=== PATIENT | female | born 1990 | race Caucasian/White ===

== ENCOUNTER 2021-07-15 01:41 | Inpatient (IN) | payer MEDICAID ==
[~2021-07-15] VITALS: Ht 160 cm; Wt 104.3 kg
[2021-07-15] MEDS ORDERED: FAMOTIDINE 20MG/2ML VIAL IV STA (03:26)
[2021-07-15] MEDS ORDERED: MORPHINE SULFATE 4 MG/ML CPJ (NOT FOR IM USE) IV STA (03:26)
[2021-07-15] MEDS ORDERED: ONDANSETRON HCL 4MG/2ML INJ IV STA (03:26)
[2021-07-15] MEDS ORDERED: SODIUM CHLORIDE 0.9% 1,000 ML IV ONE (03:30)
[2021-07-15] MEDS ORDERED: MORPHINE SULFATE 2 MG/ML CPJ (NOT FOR IM USE) IV SCH ×2 (03:45→06:15)
[2021-07-15 04:07] LABS: HEMATOCRIT. 40.9 % (36.0-48.0); HEMOGLOBIN. 13.7 g/dL (12.0-16.0); MEAN CORPUSCULAR HEMOGLOBIN 29.9 pg (28.0-32.0); MEAN CORPUSCULAR VOLUME 89.2 fL (81.0-99.0); MEAN PLATELET VOLUME 9.1 fl (7.4-10.4); PLATELET 334 x1000/uL (130-400); RED BLOOD CELL COUNT 4.58 mill/uL (4.2-5.4); RED CELL DISTRIBUTION WIDTH 12.8 % (11.6-14.6)
[2021-07-15 04:14] LABS: CLARITY URINE CLOUDY (CLEAR); COLOR URINE YELLOW (YELLOW); KETONES URINE TRACE (NEGATIVE); LEUKOCYTE ESTERASE URINE TRACE (NEGATIVE); NITRITE URINE NEGATIVE (NEGATIVE); OCCULT BLOOD URINE NEGATIVE (NEGATIVE); PH URINE 5.5 (4.5-8.0); PROTEIN URINE 2+ (NEGATIVE); SPECIFIC GRAVITY URINE 1.031 (1.005-1.030)
[2021-07-15 04:15] LABS: CHLORIDE 105 mEq/L (98-107)
[2021-07-15 04:25] LABS: HCG SCREEN NEGATIVE
[2021-07-15] MEDS ORDERED: LEVOFLOXACIN 750MG PREMIX 150 ML IV ONE (05:45)
[2021-07-15] MEDS ORDERED: MORPHINE SULFATE 4 MG/ML CPJ (NOT FOR IM USE) IV ONE (05:45)
[2021-07-15 05:50] LABS: PLATELET ESTIMATE NORMAL
[2021-07-15] MEDS ORDERED: ONDANSETRON HCL 4MG/2ML INJ IV ONE (06:15)
[2021-07-15 11:38] VITALS: BP 104/63
[2021-07-15 12:00] VITALS: BP 102/62
[2021-07-15] MEDS ORDERED: CLONIDINE 0.1MG TABLET PO PRN (12:30)
[2021-07-15] MEDS ORDERED: DEXT 5%/0.45% NACL 1000ML 1,000 ML IV SCH (12:30)
[2021-07-15] MEDS ORDERED: DOCUSATE SODIUM 100MG CAPSULE PO PRN (12:30)
[2021-07-15] MEDS ORDERED: IPRATROPIUM/ALBUTEROL 0.5-3(2.5)MG/3ML NEB HHN PRN (12:30)
[2021-07-15] MEDS ORDERED: MAGNESIUM/ALUMINUM HYDROXIDE/SIMETHICONE 30ML UDC PO PRN (12:30)
[2021-07-15] MEDS ORDERED: ONDANSETRON HCL 4MG/2ML INJ IV PRN (12:30)
[2021-07-15 17:00] VITALS: BP 100/57
[2021-07-15] MEDS: DEXT 5%/0.45% NACL KCL 20MEQ/L 1,000 ML IV SCH (18:21)
[2021-07-15 20:00] VITALS: BP 134/65
[2021-07-15] MEDS ORDERED: PNEUMOCOCCAL 23-VAL P-SAC VAC 0.5 ML IM ONE (21:30)
[2021-07-16] VITALS: BP 139/78
[2021-07-16 04:00] VITALS: BP 115/63
[2021-07-16] MEDS ORDERED: LEVOFLOXACIN 500MG PREMIX 100 ML IV SCH (06:00)
[2021-07-16] MEDS: DEXT 5%/0.45% NACL KCL 20MEQ/L 1,000 ML IV SCH (07:01)
[2021-07-16 07:28] LABS: BASOPHILS % 0.3 % (0.0-2.0); EOSINOPHILS % 1.4 % (0.0-5.0); HEMATOCRIT. 38.3 % (36.0-48.0); HEMOGLOBIN. 12.9 g/dL (12.0-16.0); LYMPHOCYTES % 20.5 % (20.0-50.0); MEAN CORPUSCULAR HEMOGLOBIN 30.3 pg (28.0-32.0); MEAN CORPUSCULAR VOLUME 90.1 fL (81.0-99.0); MEAN PLATELET VOLUME 9.4 fl (7.4-10.4); MONOCYTES % 5.3 % (2.0-8.0); NEUTROPHILS % 72.5 % (40.0-76.0); PLATELET 317 x1000/uL (130-400); RED BLOOD CELL COUNT 4.25 mill/uL (4.2-5.4); RED CELL DISTRIBUTION WIDTH 13.2 % (11.6-14.6)
[2021-07-16 07:30] LABS: CHLORIDE 106 mEq/L (98-107)
[2021-07-16 07:36] LABS: PHOSPHORUS 2.8 mg/dL (2.5-4.9)
[2021-07-16 08:00] VITALS: BP 149/75
[2021-07-16] MEDS ORDERED: PANTOPRAZOLE SODIUM 40 MG/VIAL IV SCH (09:00)
[2021-07-16 12:00] VITALS: BP 112/71
[2021-07-16] MEDS ORDERED: INFLUENZA VACCINE 05/PF 0.5 ML SYRINGE IM ONE (12:00)
[2021-07-16] MEDS ORDERED: LEVO500T89 MT (15:01)
[2021-07-16 16:00] VITALS: BP 120/73
[2021-07-16 16:12] VITALS: BP 12/71
== END 2021-07-16 16:51 | disposition home or self-care (01) ==
LOC: ER 01:41 → 6EST 06:06 → EDBEDREQ 06:15 → EDBEDREQTM 06:15 → ENRESERV 07:48
PROVIDERS: ADMIT Internal Medicine; ATTEND Internal Medicine
DX: K80.01 Calculus of gallbladder with acute cholecystitis with obstruction (principal); R65.10 Systemic inflammatory response syndrome (SIRS) of non-infectious origin without acute organ dysfunction; Z82.49 Family history of ischemic heart disease and other diseases of the circulatory system; Z88.1 Allergy status to other antibiotic agents; Z88.0 Allergy status to penicillin; Z91.013 Allergy to seafood; Z91.018 Allergy to other foods
CPT/HCPCS: 36415; 76705; 78227; 80048; 80053; 81003; 83605; 83735; 84100; 84703; 85025; 90686; 93005; 93970; 99285; A9537; C9113; J1956; J2270; J2405; J3490; J7030

== ENCOUNTER 2025-08-03 20:22 | Emergency (ER) | payer SELFPAY ==
[~2025-08-03] VITALS: Ht 152.4 cm; Wt 100.0 kg
[~2025-08-03 20:22] MED LIST: LEVO-65 MT
[2025-08-03 20:24] VITALS: O2SAT 97
[2025-08-03] MEDS ORDERED: DIPHENHYDRAMINE 50MG CAPSULE PO ONE (20:45)
[2025-08-03] MEDS ORDERED: ESCI-7 PO (20:46)
[2025-08-03] MEDS: DIPHENHYDRAMINE 25MG CAPSULE PO NR (20:51)
[2025-08-03] MEDS: FAMOTIDINE 20MG TABLET PO ONE (20:51)
[2025-08-03] MEDS: PREDNISONE 20MG TABLET PO ONE (20:51)
[2025-08-03] MEDS ORDERED: DIPH50CA42 MT (21:45)
[2025-08-03] MEDS ORDERED: EPIN0.3P3 IM (21:47)
[2025-08-03] MEDS ORDERED: P20 MT (21:47)
[2025-08-03 22:03] VITALS: BP 114/45; PULSE 53; RESP 22; TEMP 36.8; O2SAT 98
== END 2025-08-03 22:05 | disposition home or self-care (01) ==
LOC: ER 20:22
DX: T78.40XA Allergy, unspecified, initial encounter (principal); Z79.899 Other long term (current) drug therapy; Z88.0 Allergy status to penicillin; Z88.1 Allergy status to other antibiotic agents; Z91.013 Allergy to seafood; X58.XXXA Exposure to other specified factors, initial encounter
CPT/HCPCS: 99284; Q0163; J7512